=== PATIENT | female | born 1995 | race African-American/Black ===

== ENCOUNTER 2017-01-19 01:48 | Emergency (ER) | payer BC, OTHER ==
[~2017-01-19] VITALS: Ht 160 cm; Wt 50.0 kg
[2017-01-19 01:50] VITALS: TEMP 36.8; Ht 160 cm; Wt 50.0 kg
[2017-01-19] MEDS ORDERED: SODIUM CHLORIDE 0.9% 1000ML 1,000 ML IV ONE (02:00)
[2017-01-19 02:40] LABS: ISTAT HEMOGLOBIN 12.2 g/dl (12.0-16.0); ISTAT IONIZED CALCIUM 1.06 mmol/l
[2017-01-19 02:45] LABS: PROTHROMBIN TIME (PATIENT) 10.6 SECONDS (9.0-12.0)
[2017-01-19 03:09] LABS: MANUAL MICROSCOPIC REQUIRED? YES; URINE APPEARANCE CLEAR (CLEAR); URINE BILIRUBIN NEG (NEG); URINE COLOR YELLOW; URINE NITRITE NEG (NEG); URINE PH 8.5 (4.5-7.5); UROBILINOGEN NEG (NEG)
[2017-01-19 03:10] LABS: REVIEW REQ? NO
[2017-01-19 03:15] LABS: URINE BACTERIA NEG (NEG); URINE RBC 0-4 /hpf (0-4)
[2017-01-19 03:16] LABS: ZZUR CULT IF INDIC CLEAN CATCH NO
[2017-01-19 03:23] LABS: PREG INTERNAL NEGATIVE QC NEG CLEAR BACKGROUND; PREG INTERNAL POSITIVE QC POS CONTROL LINE
[2017-01-19 03:27] LABS: BENZODIAZEPINE, URINE NEG (NEG); COCAINE,URINE NEG (NEG); PHENCYCLIDINE, URINE NEG (NEG)
[2017-01-19 04:10] LABS: BASO % 0.2 %; BASO ABS # 0.02 K/uL (0-0.2); COMPLETE YES; EOS % 0.6 %; HEMATOCRIT 39.5 % (37-47); IG% 0.2 %; LYMPH % 25.8 %; LYMPH ABS # 2.34 K/uL (1.2-3.4); MEAN CORPUSCULAR HEMOGLOBIN 31.4 pg (25-34); MEAN CORPUSCULAR HGB CONC 33.4 g/dl (32-36); MEAN PLATELET VOLUME 10.1 fL (7.4-10.4); MONO % 5.7 %; NEUT % 67.5 %; PLATELET COUNT 327 K/uL (130-400); WHITE BLOOD COUNT 9.06 K/uL (4.8-10.8)
[2017-01-19 04:18] LABS: BUN/CREATININE RATIO 7.8 (10-20); CALCIUM 8.1 mg/dl (8.5-10.1); CREATININE 0.83 mg/dl (0.60-1.20); POTASSIUM 3.8 mmol/L (3.5-5.1)
[2017-01-19 04:29] LABS: THYROID STIMULATING HORMONE 1.88 uIu/ml (0.300-4.500)
[2017-01-19 04:45] VITALS: BP 124/89; PULSE 84; O2SAT 99
--- NOTE | 2017-01-19 06:05 | EMERGENCY ROOM VISIT NOTE ---
History First contact with patient: 01:53 Chief Complaint: SYNCOPE Stated Complaint: SYNCOPE Nursing Triage Summary: Patient is 5 weeks . Patient states earlier today patient was in a hot tub and drinking alcohol tonight about one hour prior arrival patient was having abdominal cramps so friends made a bath and when patient got out she had two syncopal episodes lasting about 1 minute each and 3 min apart. Friends state they noted some vaginal bleeding prior to bath. History of Present Illness The patient is a 21 year old female who presents to the Emergency Room with complaints of single episode occurred about 1 hour prior to arrival. The patient evidently had a positive home test about 2 weeks ago, and based on her last menstrual period would be 5 weeks . She plans to terminate the . The patient went out drinking tonight with her friends. When she got home she was having abdominal cramps. Her friends made a bath for her, and when the patient got out of the bath she had a syncopal episode. The patient was noted to have a single episode of vaginal bleeding prior to the bath. The patient does not have persistent pain including headache , neck pain, chest pain, or abdominal pain. She is without additional vaginal bleeding. The patient considers herself usually healthy and does not have additional complaints. Review of Systems More than 10 systems were reviewed and otherwise negative with the exception of history of present illness. Past Medical/Surgical History No chronic medical disease Family History No pertinent family history Social History Smoking Status: Never Smoker Marital Status: in relationship Occupation Status: [employer] student Current/Historical Medications No Active Prescriptions or Reported Meds Allergies Coded Allergies: No Known Allergies (Unverified , 01/19/17) Physical Exam Vital Signs Date Time Temp Pulse Resp B/P Pulse Ox O2 Delivery O2 Flow Rate FiO2 01/19/17 04:45 84 16 124/89 99 01/19/17 03:48 88 16 116/80 99 Room Air 01/19/17 02:39 85 16 123/75 89 120/70 90 116/83 01/19/17 02:00 Room Air 01/19/17 01:53 91 01/19/17 01:50 36.8 93 16 126/87 100 Room Air Pain Rating (0-10): 0 Physical Exam VITALS: Vitals are noted on the nurse's note and reviewed by myself. Vital signs stable. GENERAL: Well-developed, well-nourished, female, who is in no acute distress and resting comfortably. Patient is cooperative with the examination. HEAD: Normocephalic atraumatic. EARS: External ear normal. External auditory canals clear, tympanic membranes pearly baron without erythema or effusion bilaterally. EYES: Pupils equal round and reactive to light and accommodation. Conjunctivae without injection, sclerae without icterus. Extraocular movements intact. NOSE: Patent, turbinates without inflammation or discharge. MOUTH: Mucous membranes moist. Tonsils are not enlarged. Pharynx without erythema, blood, or exudate. Uvula midline. Airway patent. NECK: Supple without nuchal rigidity. No lymphadenopathy. No thyromegaly. Cervical spine is nontender. HEART: Regular rate and rhythm without murmurs gallops or rubs. LUNGS: Clear to auscultation bilaterally without wheezes, rales or rhonchi. No retractions or accessory muscle use. ABDOMEN: Positive normal bowel sounds x 4. Soft, nontender, without masses or organomegaly. No guarding or rebound tenderness. MUSCULOSKELETAL: No muscle atrophy, erythema, or edema noted. Full range of motion without joint tenderness in all extremities. NEURO: Patient was alert and oriented to person place and time. CN II through XII grossly intact. Medical Decision & Procedures ER Provider Diagnostic Interpretation: Preliminary Findings Only See Final Report For Complete Findings US OB 1st TRIMESTER: No evidence of intrauterine gestation. In the setting of positive serum beta hCG , differential considerations include very early IUP, occult ectopic , or recent spontaneous . Followup with beta-hCG and ultrasound would be useful. 1.5 centimeter isoechoic left ovarian cyst, likely hemorrhagic. Ovaries are otherwise within normal limits, without evidence of torsion bilaterally. Trace pelvic free fluid. Laboratory Results 01/19/17 01:32 Red Blood Count 4.20, Mean Corpuscular Volume 94.0, Mean Corpuscular Hemoglobin 31.4, Mean Corpuscular Hemoglobin Concent 33.4, Mean Platelet Volume 10.1, Neutrophils (%) (Auto) 67.5, Lymphocytes (%) (Auto) 25.8, Monocytes (%) (Auto) 5.7, Eosinophils (%) (Auto) 0.6, Basophils (%) (Auto) 0.2, Neutrophils # (Auto) 6.11, Lymphocytes # (Auto) 2.34, Monocytes # (Auto) 0.52, Eosinophils # (Auto) 0.05, Basophils # (Auto) 0.02 01/19/17 01:32 Test 01/19/17 01:32 01/19/17 02:09 01/19/17 02:19 01/19/17 02:27 White Blood Count 9.06 K/uL (4.8-10.8) Red Blood Count 4.20 M/uL (4.2-5.4) Hemoglobin 13.2 g/dL (12.0-16.0) Hematocrit 39.5 % (37-47) Mean Corpuscular Volume 94.0 fL (80-100) Mean Corpuscular Hemoglobin 31.4 pg (25-34) Mean Corpuscular Hemoglobin Concent 33.4 g/dl (32-36) Platelet Count 327 K/uL (130-400) Mean Platelet Volume 10.1 fL (7.4-10.4) Neutrophils (%) (Auto) 67.5 % Lymphocytes (%) (Auto) 25.8 % Monocytes (%) (Auto) 5.7 % Eosinophils (%) (Auto) 0.6 % Basophils (%) (Auto) 0.2 % Neutrophils # (Auto) 6.11 K/uL (1.4-6.5) Lymphocytes # (Auto) 2.34 K/uL (1.2-3.4) Monocytes # (Auto) 0.52 K/uL (0.11-0.59) Eosinophils # (Auto) 0.05 K/uL (0-0.5) Basophils # (Auto) 0.02 K/uL (0-0.2) RDW Standard Deviation 43.3 fL (36.4-46.3) RDW Coefficient of Variation 12.7 % (11.5-14.5) Immature Granulocyte % (Auto) 0.2 % Immature Granulocyte # (Auto) 0.02 K/uL (0.00-0.02) Est Creatinine Clear Calc Drug Dose 85.3 ml/min Estimated GFR () 117.7 Estimated GFR (Non- 101.5 BUN/Creatinine Ratio 7.8 (10-20) Calcium Level 8.1 mg/dl (8.5-10.1) Total Bilirubin 0.2 mg/dl (0.2-1) Aspartate Amino Transf (AST/SGOT) 14 U/L (15-37) Alanine Aminotransferase (ALT/SGPT) 20 U/L (12-78) Alkaline Phosphatase 61 U/L (45-117) Total Protein 7.9 gm/dl (6.4-8.2) Albumin 4.0 gm/dl (3.4-5.0) Globulin 3.9 gm/dl (2.5-4.0) Albumin/Globulin Ratio 1.0 (0.9-2) Lipase 174 U/L (73-393) Thyroid Stimulating Hormone (TSH) 1.880 uIu/ml (0.300-4.500) Bedside Troponin I 0.000 ng/ml (0-0.045) Prothrombin Time 10.6 SECONDS (9.0-12.0) Prothromb Time International Ratio 1.0 (0.9-1.1) Activated Partial Thromboplast Time 24.8 SECONDS (21.0-31.0) Partial Thromboplastin Ratio 1.0 Human Chorionic Gonadotropin, Qual POS (NEG) Human Chorionic Gonadotropin, Quant 47 mIU/mL Ethyl Alcohol mg/dL 204.0 mg/dl (0-3) Bedside Hemoglobin 12.2 g/dl (12.0-16.0) Bedside Hematocrit 36 % (37-47) Bedside Sodium 146 mEq/L (135-144) Bedside Potassium 3.8 mEq/L (3.3-5.0) Bedside Chloride 108 mEq/L (101-112) Bedside Total CO2 22 mEq/l (24-31) Anion Gap 20.0 mmol/L (16-25) Bedside Blood Urea Nitrogen 6 mg/dl (7-18) Bedside Creatinine 1.0 mg/dl Bedside Glucose (other) 92 mg/dl (70-99) Bedside Ionized Calcium ([place]onia) 1.06 mmol/l Test 01/19/17 02:30 Urine Color YELLOW Urine Appearance CLEAR (CLEAR) Urine pH 8.5 (4.5-7.5) Urine Specific [place] 1.020 (1.000-1.030) Urine Protein NEG (NEG) Urine Glucose (UA) NEG (NEG) Urine Ketones NEG (NEG) Urine Occult Blood 3+ (NEG) Urine Nitrite NEG (NEG) Urine Bilirubin NEG (NEG) Urine Urobilinogen NEG (NEG) Urine Leukocyte Esterase NEG (NEG) Urine RBC 0-4 /hpf (0-4) Urine WBC 1-5 /hpf (0-5) Urine Epithelial Cells 20-30 /lpf (0-5) Urine Bacteria NEG (NEG) Urine Opiates Screen NEG (NEG) Urine Methadone, Qualitative NEG (NEG) Urine Barbiturates NEG (NEG) Urine Phencyclidine (PCP) Level NEG (NEG) Ur Amphetamine/Methamphetamine NEG (NEG) MDMA (Ecstasy) Screen NEG (NEG) Urine Benzodiazepines Screen NEG (NEG) Urine Cocaine Metabolite NEG (NEG) Urine Marijuana (THC) POS (NEG) Medications Administered Medications (Trade) Dose Ordered Sig/Ja Route Start Time Stop Time Status Last Admin Dose Admin Sodium Chloride (Nss 1000ml) 1,000 ml @ 999 mls/hr Q1H1M ONCE IV 01/19/17 02:00 01/19/17 03:00 DC 01/19/17 02:06 999 MLS/HR ED Course Physical exam and history were performed. Nursing notes and EMR were reviewed. Patient appears to have suffered a single episode about one hour ago. On examination the patient does not appear toxic. Her exam is as above and was without significant findings. She deferred pelvic exam. EKG was normal sinus rhythm without acute ST elevation or evidence of ischemia. IV access was established and labs were obtained. Patient was hydrated with normal saline. Out of concern for vaginal bleeding and stat ultrasound was arranged. The patient blood work is as above and was reviewed. The patient does not have significant the elevated white blood cell count or gross anemia, bandemia, or significant electrolyte imbalance. Lipase and transaminases are nondiagnostic. Troponin 1 is negative. TSH is euthyroid state. The patient's urine is without obvious infection. Drug of abuse screen was positive for marijuana. Alcohol was elevated at greater than 200. She is blood type O+ and does not need Rhogam. HCG qualitative was positive, and she had a quantitative of 47. The patient ultrasound returned as above and does not show evidence of intrauterine gestation or retained products of conception. Clinically this could represent occult ectopic, however the patient does not have persistent pain or bleeding. I suspect the patient had a spontaneous , and her bleeding earlier today was the passing of tissue. The patient and I had a very lengthy discussion regarding her care today. The patient's hCG quantitative of 47 should be between 1000 and 50,000 based on her dates. She will need this monitored to ensure that it returns to 0. There is the possibility of early or occult ectopic, and I did explain this at length to both the patient and her significant other. The patient needs to follow with [facility] or [facility] tomorrow for a recheck of her condition. If she has worsening bleeding or pain she was asked to return immediately. The patient may otherwise use Tylenol for her symptoms. She was asked to avoid alcohol and marijuana in the future as this could have triggered her syncope today. Overall the patient felt well for discharge, and rated her discomfort a 0/10 at the time of departure. The chart was completed utilizing [employer] Speech Voice Recognition Software. Grammatical errors, random word insertions, pronoun errors, and incomplete sentences are an occasional consequence of this system due to software limitations, ambient noise, and hardware issues. Any formal questions or concerns about the content, text, or information contained within the body of this dictation should be directly addressed to the provider for clarification. . Medical Decision Differential diagnosis: Etiologies such as ectopic , dysfunction uterine bleeding, bleeding dyscrasia, trauma, infection, as well as others were entertained. Impression Primary Impression: Syncope Additional Impressions: Alcohol intoxication Vaginal bleeding in Marijuana use Inappropriate level of quantitative hCG for gestational age in... Departure Information Dispostion Home / Self-Care Condition GOOD Prescriptions No Active Prescriptions or Reported Meds Forms HOME CARE DOCUMENTATION FORM, School Instructions, Additional Instructions: Patient seen and evaluated in the emergency department for medical care. Return to class on 01/25/2017. IMPORTANT VISIT INFORMATION Patient Instructions My [facility] Additional Instructions You were seen and evaluated today on an emergency basis only. This is not a substitute for, or an effort to provide, complete comprehensive medical care. It is not possible to recognize and treat all injuries or illnesses in a single emergency department visit. For this reason it is recommended that you followup with [facility], [facility], or the [facility] tomorrow for a recheck of your condition. You will need repeat blood work to follow your hCG quantitative level. This was measured at 47 today in the ER. Take your blood work results with you for your appointments. Drink plenty of fluids and remain well hydrated. You may use Tylenol 1 g every 6-8 hours as needed for pain. Avoid alcohol and marijuana as this can exacerbate your symptoms. You are welcome to return to the emergency department anytime with new, worsening, or concerning symptoms. School Instructions Additional School Instructions: Patient seen and evaluated in the emergency department for medical care. Return to class on 01/25/2017. Problem Qualifiers
--- NOTE | 2017-01-19 06:58 | DIAGNOSTIC IMAGING REPORT ---
FIRST TRIMESTER OBSTETRICAL ULTRASOUND (transabdominal and endovaginal scanning was ( CLINICAL HISTORY: and vaginal bleeding COMPARISON STUDY: No previous studies for comparison. FINDINGS: No intrauterine gestational sac is visualized. Image stripe measures 8 mm. The right ovary measures 27 x 16 x 17 mm. The left ovary measures 24 x 17 x 21 mm. There is a 15 mm heterogeneous focus within the left ovary, likely representing a hemorrhagic cyst. There is no significant free fluid. IMPRESSION: 1. No intrauterine gestational sac visualized 2. Diagnostic considerations therefore include early intrauterine , ectopic , or spontaneous . Correlation with serial quantitative beta hCGs is recommended. Electronically signed by: Jovanny Ceja M.D. 01/19/2017 6:57 AM Dictated Date/Time: 01/19/2017 6:55 AM
== END 2017-01-19 04:45 | disposition home or self-care (01) ==
LOC: EDBD 01:48 → C.EDA 01:50
DX: R55 Syncope and collapse (principal); F10.120 Alcohol abuse with intoxication, uncomplicated; O99.311 Alcohol use complicating pregnancy, first trimester; Y90.7 Blood alcohol level of 200-239 mg/100 ml; O20.8 Other hemorrhage in early pregnancy; F12.90 Cannabis use, unspecified, uncomplicated; O02.81 Inappropriate change in quantitative human chorionic gonadotropin (hCG) in early pregnancy; Z3A.01 Less than 8 weeks gestation of pregnancy

== ENCOUNTER 2017-01-20 12:09 | Emergency (ER) | payer BC, OTHER ==
[~2017-01-20] VITALS: Ht 160 cm; Wt 50.9 kg
[2017-01-20 12:24] VITALS: TEMP 36.9; Ht 160 cm; Wt 50.9 kg
[2017-01-20 13:26] LABS: BASO % 0.3 %; BASO ABS # 0.02 K/uL (0-0.2); COMPLETE YES; EOS % 0.4 %; HEMATOCRIT 35.3 % (37-47); IG% 0.1 %; LYMPH % 17.9 %; LYMPH ABS # 1.31 K/uL (1.2-3.4); MEAN CELL VOLUME 92.2 fL (80-100); MEAN CORPUSCULAR HEMOGLOBIN 30.8 pg (25-34); MEAN CORPUSCULAR HGB CONC 33.4 g/dl (32-36); MEAN PLATELET VOLUME 9.6 fL (7.4-10.4); MONO % 6.8 %; NEUT % 74.5 %; PLATELET COUNT 276 K/uL (130-400); RED BLOOD COUNT 3.83 M/uL (4.2-5.4); WHITE BLOOD COUNT 7.32 K/uL (4.8-10.8)
[2017-01-20 13:34] LABS: URINE APPEARANCE CLEAR (CLEAR); URINE BILIRUBIN NEG (NEG); URINE COLOR YELLOW; URINE EPITHELIAL CELL AUTO >30 /lpf (0-5); URINE NITRITE NEG (NEG); URINE PH 5.5 (4.5-7.5); URINE SPECIFIC GRAVITY 1.017 (1.000-1.030); UROBILINOGEN NEG (NEG); ZZUR CULT IF INDIC CLEAN CATCH NO
[2017-01-20 13:44] LABS: BUN/CREATININE RATIO 13.1 (10-20); CALCIUM 8.7 mg/dl (8.5-10.1); CREATININE 0.74 mg/dl (0.60-1.20); POTASSIUM 3.8 mmol/L (3.5-5.1)
[2017-01-20 13:45] LABS: MANUAL MICROSCOPIC REQUIRED? NO; REVIEW REQ? NO
--- NOTE | 2017-01-20 14:28 | EMERGENCY ROOM VISIT NOTE ---
History First contact with patient: 12:33 Chief Complaint: VAGINAL BLEEDING Stated Complaint: CRAMPING, LOWER BACK PAINS, MISCARRIAGE History of Present Illness The patient is a 21 year old female who presents to the Emergency Room with complaints of vaginal bleeding and pelvic cramping. The patient states that she was seen here early yesterday morning for the same complaints. She states that she is approximately 5 weeks . She was told after her last visit that she may be having a miscarriage. She was told to follow-up with [facility] REPRESENT[facility] and states that she went to the office today but they do not accept walk-in patients and she did make an appointment for tomorrow. The patient reports lower abdominal cramping with radiation into the low back. She states that the bleeding has been like a normal period but she has passed some clots. She denies any previous pregnancies. She rates her discomfort a 5/10 and states that she has been taking Tylenol for pain. She denies any fevers/chills, weakness, or lightheadedness. Review of Systems A complete 10-point Review of Systems was discussed with the patient, with pertinent positives and negatives listed in the History of Present Illness. All remaining Review of Systems questions can be considered negative unless otherwise specified. Social History Smoking Status: Never Smoker Marital Status: in relationship Occupation Status: [employer] student Current/Historical Medications No Active Prescriptions or Reported Meds Allergies Coded Allergies: No Known Allergies (Unverified , 01/20/17) Physical Exam Vital Signs Date Time Temp Pulse Resp B/P Pulse Ox O2 Delivery O2 Flow Rate FiO2 01/20/17 14:41 83 125/78 96 01/20/17 12:24 36.9 85 18 141/67 100 Room Air Physical Exam VITALS: Vitals are noted on the nurse's note and reviewed by myself. Vital signs stable. GENERAL: This is a 21-year-old female, in no acute distress, nondiaphoretic, well-developed well-nourished. HEART: Regular rate and rhythm without murmurs gallops or rubs. LUNGS: Clear to auscultation bilaterally without wheezes, rales or rhonchi. ABDOMEN: Positive bowel sounds x 4. Soft, minimal tenderness over the suprapubic region. No guarding or rebound tenderness. PELVIC: External genitalia unremarkable. There is a moderate amount of blood within the vaginal vault which obscures the cervix. No clots or tissue are seen. NEURO: Patient was alert and oriented to person place and time. Medical Decision & Procedures Laboratory Results 01/20/17 13:05 Red Blood Count 3.83, Mean Corpuscular Volume 92.2, Mean Corpuscular Hemoglobin 30.8, Mean Corpuscular Hemoglobin Concent 33.4, Mean Platelet Volume 9.6, Neutrophils (%) (Auto) 74.5, Lymphocytes (%) (Auto) 17.9, Monocytes (%) (Auto) 6.8, Eosinophils (%) (Auto) 0.4, Basophils (%) (Auto) 0.3, Neutrophils # (Auto) 5.45, Lymphocytes # (Auto) 1.31, Monocytes # (Auto) 0.50, Eosinophils # (Auto) 0.03, Basophils # (Auto) 0.02 01/20/17 13:05 Test 01/20/17 13:05 White Blood Count 7.32 K/uL (4.8-10.8) Red Blood Count 3.83 M/uL (4.2-5.4) Hemoglobin 11.8 g/dL (12.0-16.0) Hematocrit 35.3 % (37-47) Mean Corpuscular Volume 92.2 fL (80-100) Mean Corpuscular Hemoglobin 30.8 pg (25-34) Mean Corpuscular Hemoglobin Concent 33.4 g/dl (32-36) Platelet Count 276 K/uL (130-400) Mean Platelet Volume 9.6 fL (7.4-10.4) Neutrophils (%) (Auto) 74.5 % Lymphocytes (%) (Auto) 17.9 % Monocytes (%) (Auto) 6.8 % Eosinophils (%) (Auto) 0.4 % Basophils (%) (Auto) 0.3 % Neutrophils # (Auto) 5.45 K/uL (1.4-6.5) Lymphocytes # (Auto) 1.31 K/uL (1.2-3.4) Monocytes # (Auto) 0.50 K/uL (0.11-0.59) Eosinophils # (Auto) 0.03 K/uL (0-0.5) Basophils # (Auto) 0.02 K/uL (0-0.2) RDW Standard Deviation 42.4 fL (36.4-46.3) RDW Coefficient of Variation 12.5 % (11.5-14.5) Immature Granulocyte % (Auto) 0.1 % Immature Granulocyte # (Auto) 0.01 K/uL (0.00-0.02) Urine Color YELLOW Urine Appearance CLEAR (CLEAR) Urine pH 5.5 (4.5-7.5) Urine Specific [place] 1.017 (1.000-1.030) Urine Protein NEG (NEG) Urine Glucose (UA) NEG (NEG) Urine Ketones NEG (NEG) Urine Occult Blood 3+ (NEG) Urine Nitrite NEG (NEG) Urine Bilirubin NEG (NEG) Urine Urobilinogen NEG (NEG) Urine Leukocyte Esterase NEG (NEG) Urine WBC (Auto) 1-5 /hpf (0-5) Urine RBC (Auto) 0-4 /hpf (0-4) Urine Hyaline Casts (Auto) 0 /lpf (0-5) Urine Epithelial Cells (Auto) >30 /lpf (0-5) Urine Bacteria (Auto) NEG (NEG) Anion Gap 6.0 mmol/L (3-11) Est Creatinine Clear Calc Drug Dose 97.4 ml/min Estimated GFR () 135.2 Estimated GFR (Non- 116.6 BUN/Creatinine Ratio 13.1 (10-20) Calcium Level 8.7 mg/dl (8.5-10.1) Human Chorionic Gonadotropin, Quant 24 mIU/mL Medical Decision Differential diagnosis includes spontaneous , threatened , placenta previa, placental abruption, first trimester bleeding, among others. The patient was evaluated as above. Labs were drawn and IV access was obtained. The patient is a 21-year-old female who presents today complaining of continued vaginal bleeding and mild cramping. The patient was seen here approximately 36 hours ago for similar complaints. At that time, an ultrasound did not show an intrauterine . Beta hCG was found to be 47. Beta hCG has now decreased to 24. I do feel this represents a spontaneous , given the decrease of beta hCG within 36 hours. I do not feel that repeat ultrasound is necessary at this time, especially given that the patient has an appointment tomorrow with [facility]PRESENT[facility]. There is no fever or leukocytosis to suggest a septic . The patient is not anemic. No evidence of infection on urinalysis. The patient was encouraged to keep her appointment with [facility] C[facility] SALES REPRESENTATIVE tomorrow, as she will need follow-up to resolution. She was instructed to return here for any worsening of her current condition or new/concerning symptoms. Based on the patient's presentation, lab results, and imaging studies, I feel the patient is stable for outpatient treatment. Discharge instructions were reviewed with the patient. The patient verbalized understanding of my assessment and treatment plan and was discharged home in good condition. Impression Primary Impression: Spontaneous Departure Information Dispostion Home / Self-Care Condition GOOD Prescriptions No Active Prescriptions or Reported Meds Referrals No Doctor, Assigned (PCP) Patient Instructions My [facility] Additional Instructions Follow-up with [facility]IMARY C[facility] SALES REPRESENTATIVE as scheduled tomorrow. For pain control, you can use the following [id number] medicines (if >12 yo): - Regular strength (325mg/tab) Tylenol (acetaminophen) 2 tabs every 4-6 hours as needed. Do not exceed 12 tablets in a 24 hour period. Avoid taking more than 4 grams (4000 mg) of Tylenol per day. This includes any other sources of acetaminophen you may take on a regular basis. - Regular strength (200 mg/tab) Advil (ibuprofen) 1-2 tabs every 4-6 hours as needed. Do not exceed a dose of 3200 mg per day. Return for any worsening or new/concerning symptoms.
[2017-01-20 14:41] VITALS: BP 125/78; PULSE 83; O2SAT 96
== END 2017-01-20 14:42 | disposition home or self-care (01) ==
LOC: C.EDB 12:12
DX: O03.9 Complete or unspecified spontaneous abortion without complication (principal)

== ENCOUNTER → 2017-01-24 | Outpatient (CLI) | payer BC ==
[2017-01-24 17:40] LABS: BASO % 0.6 %; BASO ABS # 0.04 K/uL (0-0.2); COMPLETE YES; EOS % 0.8 %; HEMATOCRIT 37.4 % (37-47); IG% 0.2 %; LYMPH % 28.9 %; LYMPH ABS # 1.84 K/uL (1.2-3.4); MEAN CELL VOLUME 92.8 fL (80-100); MEAN CORPUSCULAR HGB CONC 33.4 g/dl (32-36); MEAN PLATELET VOLUME 10.2 fL (7.4-10.4); NEUT % 61.5 %; PLATELET COUNT 329 K/uL (130-400); RED BLOOD COUNT 4.03 M/uL (4.2-5.4); WHITE BLOOD COUNT 6.37 K/uL (4.8-10.8)
== END | disposition home or self-care (01) ==
LOC: C.LAB1850 16:16
PROVIDERS: ATTEND Obstetrics & Gynecology
DX: O03.9 Complete or unspecified spontaneous abortion without complication (principal)